=== PATIENT | male | born 1990 | race Caucasian/White ===

== ENCOUNTER 2020-03-17 11:52 | Emergency (ER) | payer BC ==
[~2020-03-17] VITALS: Ht 185.4 cm; Wt 93.1 kg
[2020-03-17] MEDS ORDERED: ONDANSETRON PF 4 MG/2 ML VIAL. IVP ONE (12:15)
[2020-03-17] MEDS ORDERED: IV NORMAL SALINE 1,000ML 1,000 ML IV ONE (12:15)
--- NOTE | 2020-03-17 12:21 | PHYS DOC ---
Past History Past Medical History: No Pertinent History Past Surgical History: No Surgical History Alcohol Use: None General Adult EDM: Chief Complaint: NAUSEA/VOMITING/DIARRHEA HPI: HPI: Patient is a 29 year-old male who presented to ER today for evaluation of generalized weakness, nausea, vomiting, no appetite for over 3 weeks. Patient was laid off for us 4 months, he yet came back to work 4 weeks ago. Patient work as car detail, was working outside 7 hours a day. Patient says thinking back to work patient had no energy, no appetite. Patient denies any abdominal pain, no diarrhea, no cough, no fever. Patient denies any chest pain. Denies any trouble breathing. Patient denies being exposed to anybody who tested positive for COVID-19. Review of Systems: Review of Systems: Constitutional: Denies fever or chills Eyes: Denies change in visual acuity HENT: Denies nasal congestion or sore throat Respiratory: Denies cough or shortness of breath Cardiovascular: Denies chest pain or edema GI: Denies abdominal pain, positive for nausea and vomiting, no diarrhea, no constipation. : Denies dysuria Musculoskeletal: Denies back pain or joint pain Integument: Denies rash Neurologic: Denies headache, focal weakness or sensory changes Endocrine: Denies polyuria or polydipsia Lymphatic: Denies swollen glands Psychiatric: Denies depression or anxiety Heart Score: Risk Factors: Risk Factors: DM, Current or recent (<one month) smoker, HTN, HLP, family history of CAD, obesity. Risk Scores: Score 0 - 3: 2.5% MACE over next 6 weeks - Discharge Home Score 4 - 6: 20.3% MACE over next 6 weeks - Admit for Clinical Observation Score 7 - 10: 72.7% MACE over next 6 weeks - Early Invasive Strategies Current Medications: Current Meds: Current Medications Medications (Trade) Dose Ordered Sig/Marino Start Time Stop Time Status Last Admin Dose Admin Ondansetron HCl (Zofran) 4 mg 1X ONCE 03/17/20 12:15 03/17/20 12:16 DC Sodium Chloride 1,000 ml @ 1,000 mls/hr 1X ONCE 03/17/20 12:15 03/17/20 13:14 Allergies: Allergies: Allergies Coded Allergies Type Severity Reaction Last Updated Verified No Known Drug Allergies 03/17/20 No Physical Exam: PE: Constitutional: Well developed, well nourished, no acute distress, non-toxic appearance. [] HENT: Normocephalic, atraumatic, bilateral external ears normal, oropharynx moist, no oral exudates, nose normal. [] Eyes: PERRLA, EOMI, conjunctiva normal, no discharge. [] Neck: Normal range of motion, no tenderness, supple, no stridor. [] Cardiovascular:Heart rate regular rhythm, no murmur [] Lungs & Thorax: Bilateral breath sounds clear to auscultation [] Abdomen: Bowel sounds normal, soft, no tenderness, no masses, no pulsatile m asses. [] Skin: Warm, dry, no erythema, no rash. [] Back: No tenderness, no CVA tenderness. [] Extremities: No tenderness, no cyanosis, no clubbing, ROM intact, no edema. [] Neurologic: Alert and oriented X 3, normal motor function, normal sensory function, no focal deficits noted. [] Psychologic: Affect normal, judgement normal, mood normal. [] Current Patient Data: Labs: Laboratory Tests Test 03/17/20 12:18 03/17/20 12:23 Urine Opiates Screen Neg Urine Methadone Screen Neg Urine Barbiturates Neg Urine Phencyclidine Screen Neg Urine Amphetamine/Methamphetamine Neg Urine Benzodiazepines Screen Neg Urine Cocaine Screen Neg Urine Cannabinoids Screen Pos Urine Ethyl Alcohol Neg White Blood Count 8.2 x10^3/uL Red Blood Count 4.74 x10^6/uL Hemoglobin 16.5 g/dL Hematocrit 48.2 % Mean Corpuscular Volume 102 fL Mean Corpuscular Hemoglobin 35 pg Mean Corpuscular Hemoglobin Concent 34 g/dL Red Cell Distribution Width 12.9 % Platelet Count 240 x10^3/uL Neutrophils (%) (Auto) 56 % Lymphocytes (%) (Auto) 34 % Monocytes (%) (Auto) 8 % Eosinophils (%) (Auto) 2 % Basophils (%) (Auto) 1 % Neutrophils # (Auto) 4.6 x10^3uL Lymphocytes # (Auto) 2.8 x10^3/uL Monocytes # (Auto) 0.6 x10^3/uL Eosinophils # (Auto) 0.1 x10^3/uL Basophils # (Auto) 0.1 x10^3/uL Sodium Level 140 mmol/L Potassium Level 3.7 mmol/L Chloride Level 104 mmol/L Carbon Dioxide Level 23 mmol/L Anion Gap 13 Blood Urea Nitrogen 10 mg/dL Creatinine 1.1 mg/dL Estimated GFR (Cockcroft-Gault) 79.7 BUN/Creatinine Ratio 9 Glucose Level 99 mg/dL Calcium Level 9.3 mg/dL Magnesium Level 2.0 mg/dL Total Bilirubin 0.3 mg/dL Aspartate Amino Transf (AST/SGOT) 14 U/L Alanine Aminotransferase (ALT/SGPT) 32 U/L Alkaline Phosphatase 78 U/L Creatine Kinase 94 U/L Total Protein 7.6 g/dL Albumin 3.9 g/dL Albumin/Globulin Ratio 1.1 Lipase 62 U/L Current Medications Medications (Trade) Dose Ordered Sig/Marino Route PRN Reason Start Time Stop Time Status Last Admin Dose Admin Ondansetron HCl (Zofran) 4 mg 1X ONCE IVP 03/17/20 12:15 03/17/20 12:16 DC 03/17/20 12:28 Sodium Chloride 1,000 ml @ 1,000 mls/hr 1X ONCE IV 03/17/20 12:15 03/17/20 13:14 03/17/20 12:25 Vital Signs: Vital Signs Date Time Temp Pulse Resp B/P (MAP) Pulse Ox O2 Delivery O2 Flow Rate FiO2 03/17/20 12:00 97.9 86 12 152/97 (115) 96 Room Air EKG: EKG: [] Radiology/Procedures: Radiology/Procedures: [] Course & Med Decision Making: Course & Med Decision Making Pertinent Labs and Imaging studies reviewed. (See chart for details) Patient is a 29-year-old male who presents to ER today for evaluation of nausea vomiting off and on for 3 weeks, lab work did not find any acute problem. Patient will be discharged home with nausea medication as needed. Dragon Disclaimer: Dragon Disclaimer: This electronic medical record was generated, in whole or in part, using a voice recognition dictation system. Departure Departure: Impression: Primary Impression: Nausea & vomiting Disposition: 01 HOME/RESIDENCE PRIOR TO ADM Condition: IMPROVED Referrals: PCP,NO (PCP) please follow up with your doctor as needed Patient Instructions: Nausea and Vomiting Additional Instructions: Thank you for visiting our Emergency Department. We appreciate you trusting us with your care. If any additional problems come up don't hesitate to return to visit us. Please follow up with your primary care provider so they can plan additional care if needed and know about the problem that you had. If symptoms worsen come back to the Emergency Department. Any concerning symptoms that start such as chest pain, shortness of air, weakness or numbness on one side of the body, running high fevers or any other concerning symptoms return to the ER. Scripts Ondansetron Hcl (ZOFRAN) 4 Mg Tablet 1 TAB PO Q6HRS PRN for NAUSEA, #20 TAB Prov: QUIANA AUGUSTIN DO 03/17/20 Justification of Admission: Justification of Admission: Justification of Admission Dx: N/A QUIANA AUGUSTIN DO Mar 17, 2020 12:21
[2020-03-17 12:46] LABS: BASO # 0.1 x10^3/uL (0.0-0.2); BASO % 1 % (0-3); EOS # 0.1 x10^3/uL (0.0-0.7); EOS % 2 % (0-3); HEMATOCRIT 48.2 % (39.0-53.0); HEMOGLOBIN 16.5 g/dL (13.0-17.5); LYMPH # 2.8 x10^3/uL (1.0-4.8); LYMPH % 34 % (24-48); MEAN CORPUSCULAR HEMOGLOBIN 35 pg (25-35); MEAN CORPUSCULAR HGB CONC 34 g/dL (31-37); MEAN CORPUSCULAR VOLUME 102 fL (79-100); MONO # 0.6 x10^3/uL (0.0-1.1); MONO % 8 % (0-9); NEUT # 4.6 x10^3uL (1.8-7.7); NEUT % 56 % (31-73); PLATELET COUNT 240 x10^3/uL (140-400); RED BLOOD COUNT 4.74 x10^6/uL (4.30-5.70); RED CELL DISTRIBUTION WIDTH 12.9 % (11.5-14.5); WHITE BLOOD COUNT 8.2 x10^3/uL (4.0-11.0)
[2020-03-17 12:55] LABS: CALCIUM 9.3 mg/dL (8.5-10.1); CREATININE 1.1 mg/dL (0.7-1.3); GFR 79.7; POTASSIUM 3.7 mmol/L (3.5-5.1)
[2020-03-17 12:57] LABS: BARBITURATES NEG (NEG); BENZODIAZEPINES NEG (NEG); CANNABINOIDS POS (NEG); COCAINE NEG (NEG); METHADONE NEG (NEG); OPIATES NEG (NEG); PHENCYCLIDINE NEG (NEG)
[2020-03-17 13:01] LABS: AMPHETAMINE/METHAMPHETAMINE NEG (NEG)
[2020-03-17 13:01] LABS: ALBUMIN 3.9 g/dL (3.4-5.0); ALBUMIN/GLOBULIN RATIO 1.1 (1.0-1.7); TOTAL BILIRUBIN 0.3 mg/dL (0.2-1.0); TOTAL PROTEIN 7.6 g/dL (6.4-8.2)
[2020-03-17 13:06] VITALS: BP 129/72
[2020-03-17 13:12] LABS: CLARITY,URINE HAZY; COLOR,URINE YELLOW
[2020-03-17] MEDS ORDERED: ONDA4TAB7 PO (13:12)
[2020-03-17 13:13] LABS: BACTERIA,URINE 0 /HPF (0-FEW); BILIRUBIN,URINE NEG (NEG); GLUCOSE,URINE NEG (NEG); NITRITE,URINE NEG (NEG); RBC,URINE OCC /HPF (0-2)
== END 2020-03-17 13:15 | disposition home or self-care (01) ==
LOC: ER 11:52
DX: R11.2 Nausea with vomiting, unspecified (principal); R53.1 Weakness
CPT/HCPCS: 36415; 80053; 80307; 81001; 82550; 83690; 83735; 85025; 96361; 96374; 99283; J2405; J7030

== ENCOUNTER 2020-08-12 14:59 | Emergency (ER) | payer SELFPAY ==
[~2020-08-12] VITALS: Ht 185.4 cm; Wt 94.5 kg
[~2020-08-12 14:59] MED LIST: ONDA4TAB7 PO
[2020-08-12] MEDS ORDERED: FAMOTIDINE 20 MG/2 ML VIAL IVP ONE (15:15)
[2020-08-12] MEDS ORDERED: KETOROLAC 15 MG/ML VIAL. IVP ONE (15:15)
[2020-08-12] MEDS ORDERED: IV NORMAL SALINE 1,000ML 1,000 ML IV ONE (15:15)
[2020-08-12] MEDS ORDERED: ONDANSETRON PF 4 MG/2 ML VIAL. IVP ONE (15:30)
[2020-08-12] MEDS ORDERED: IOHEXOL 350 MG/ML 100 ML VIAL. IV ONE (16:00)
[2020-08-12 16:33] LABS: ALBUMIN 3.4 g/dL (3.4-5.0); ALBUMIN/GLOBULIN RATIO 0.9 (1.0-1.7); BASO % 1 % (0-3); EOS # 0.2 x10^3/uL (0.0-0.7); EOS % 3 % (0-3); HEMATOCRIT 50.3 % (39.0-53.0); HEMOGLOBIN 17.7 g/dL (13.0-17.5); LYMPH # 1.9 x10^3/uL (1.0-4.8); LYMPH % 27 % (24-48); MAGNESIUM 2.1 mg/dL (1.8-2.4); MEAN CORPUSCULAR HEMOGLOBIN 33 pg (25-35); MEAN CORPUSCULAR HGB CONC 35 g/dL (31-37); MEAN CORPUSCULAR VOLUME 94 fL (79-100); MONO # 0.9 x10^3/uL (0.0-1.1); MONO % 12 % (0-9); NEUT # 4.1 x10^3uL (1.8-7.7); NEUT % 58 % (31-73); PLATELET COUNT 185 x10^3/uL (140-400); RED BLOOD COUNT 5.33 x10^6/uL (4.30-5.70); RED CELL DISTRIBUTION WIDTH 13.3 % (11.5-14.5); TOTAL BILIRUBIN 0.2 mg/dL (0.2-1.0); TOTAL PROTEIN 7.4 g/dL (6.4-8.2); WHITE BLOOD COUNT 7.1 x10^3/uL (4.0-11.0)
[2020-08-12 16:47] LABS: CALCIUM 8.7 mg/dL (8.5-10.1); CREATININE 1.2 mg/dL (0.7-1.3); GFR 71.6; POTASSIUM 3.3 mmol/L (3.5-5.1)
[2020-08-12 17:02] LABS: BARBITURATES NEG (NEG); BENZODIAZEPINES NEG (NEG); CANNABINOIDS POS (NEG); COCAINE NEG (NEG); METHADONE NEG (NEG); OPIATES NEG (NEG); PHENCYCLIDINE NEG (NEG)
[2020-08-12 17:11] LABS: BILIRUBIN,URINE SMALL (NEG); CLARITY,URINE CLEAR; COLOR,URINE AMBER; GLUCOSE,URINE NEG (NEG); NITRITE,URINE NEG (NEG); UROBILINOGEN,URINE 0.2 mg/dL (0.2 mg/dL)
[2020-08-12 17:12] LABS: BACTERIA,URINE FEW /HPF (0-FEW); SQUAMOUS EPITHELIAL CELL,UR OCC /LPF; WBC,URINE RARE /HPF (0-4)
[2020-08-12 17:16] LABS: AMPHETAMINE/METHAMPHETAMINE NEG (NEG)
--- NOTE | 2020-08-12 17:38 | RAD ---
CT angiogram of the chest, abdomen and pelvis: Reason for examination: Cough, chest pain and nausea and vomiting. Helical images were obtained through the chest, abdomen and pelvis with intravenous administration of 100 cc Omnipaque 350 using angiographic protocol. 3-D MIPS reconstruction was performed in sagittal and coronal planes. Exposure: One or more of the following individualized dose reduction techniques were utilized for thi s examination: 1. Automated exposure control 2. Adjustment of the mA and/or kV according to patient size 3. Use of iterative reconstruction technique. No abnormality seen at the thyroid gland. The trachea and mainstem bronchi show no intraluminal lesio ns. No focal abnormality seen at the esophagus. The thoracic aorta shows no aneurysmal dilatation or dissection. The heart size is normal with no pericardial effusion. There is no evidence of pulmonary embolus. The lung tabor are clear with no gross infiltrates, nodules or pleural effusions. No acute bony abnormalities are seen in the thorax. No abnormality seen at the liver, spleen or adrenal glands. No abnormality seen at the gallbladder or pancreas. The abdominal aorta and inferior vena cava show no acute abnormalities. The colon shows so me wall thickening in the ascending, transverse and descending colon suggesting colitis. The small in testinal tract also shows some wall thickening proximally in the small intestine which may reflect so me enteritis. No abnormality seen at the stomach or duodenum. No abnormality seen at the appendix. Th e kidneys show no renal masses, renal calculi, hydronephrosis or obstructive uropathy. There does karla ear to be some cortical thinning at the upper and lower poles of the left kidney which may reflect so me parenchymal scarring. No abnormality seen at the bladder, prostate gland or seminal vesicles. No free fluid or free air is seen in the abdomen or pelvis. No acute bony abnormalities are seen in the lumbar spine or pelvis. IMPRESSION: No pulmonary embolus. No infiltrates or pleural effusions. Wall thickening in the ascending, transverse and descending colon suggesting colitis. Wall thickening in the proximal small intestine suggesting enteritis. Cortical thinning at the upper and lower poles of the left kidney which probably reflect parenchymal scarring. Electronically signed by: Jennifer Davis MD (08/12/2020 5:36 PM) DAREK
[2020-08-12 17:49] VITALS: BP 127/65
[2020-08-12] MEDS ORDERED: CIPR500T94 PO (17:55)
[2020-08-12] MEDS ORDERED: METR500T PO (17:55)
[2020-08-12] MEDS ORDERED: HYOS0.1265 SL (17:55)
[2020-08-12] MEDS ORDERED: ONDA4TAB12 PO (17:55)
--- NOTE | 2020-08-12 17:55 | PHYS DOC ---
Past History Past Medical History: GERD Past Surgical History: Other Additional Past Surgical Histo: ESOPHAGUS ULCERS REMOVED Smoking: Cigarettes Alcohol Use: None Drug Use: Marijuana General Adult EDM: Chief Complaint: ABDOMINAL PAIN HPI: HPI: 30-year-old male presents with 3-day history of lower abdominal pain with associated nausea/vomiting/diarrhea and subjective fever/chills. Patient denies known sick contacts. Denies trauma. Reports generalized malaise. Denies known exposure to COVID-19. Denies chest pain, cough, or shortness of air. Review of Systems: Review of Systems: Constitutional: Reports fever and chills and generalized malaise Eyes: Denies redness or eye pain HENT: Denies nasal congestion or sore throat Respiratory: Denies cough or shortness of breath Cardiovascular: Denies chest pain or palpitations GI: Reports abdominal pain, nausea, vomiting, and diarrhea : Denies dysuria or hematuria Musculoskeletal: Denies back pain or joint pain Integument: Denies rash or skin lesions Neurologic: Denies headache, focal weakness or sensory changes Complete systems were reviewed and found to be within normal limits, except as documented in this note. Current Medications: Current Meds: Current Medications Medications (Trade) Dose Ordered Sig/[facility] Start Time Stop Time Status Last Admin Dose Admin Famotidine (Pepcid Vial) 20 mg 1X ONCE 08/12/20 15:15 08/12/20 15:25 DC 08/12/20 15:42 20 MG Iohexol (Omnipaque 350 Mg/ml) 100 ml 1X ONCE 08/12/20 16:00 08/12/20 16:01 DC Ketorolac Tromethamine (Toradol 15mg Vial) 15 mg 1X ONCE 08/12/20 15:15 08/12/20 15:25 DC 08/12/20 15:44 15 MG Ondansetron HCl (Zofran) 4 mg 1X ONCE 08/12/20 15:30 08/12/20 15:31 DC 08/12/20 15:43 4 MG Sodium Chloride 1,000 ml @ 1,000 mls/hr 1X ONCE 08/12/20 15:15 08/12/20 16:14 DC 08/12/20 15:41 1,000 MLS/HR Allergies: Allergies: Allergies Coded Allergies Type Severity Reaction Last Updated Verified No Known Drug Allergies 08/12/20 No Physical Exam: PE: Constitutional: Well developed, well nourished, no acute distress, non-toxic appearance HENT: Normocephalic, atraumatic Eyes: Conjunctiva normal, no discharge Neck: Normal range of motion, no tenderness, supple Lungs & Thorax: No respiratory distress, equal chest rise and fall Abdomen: Soft, diffuse tenderness; no guarding/rebound tenderness/distention Skin: Warm, dry, no erythema, no rash Back: No tenderness, no CVA tenderness Extremities: No tenderness, ROM intact, no edema Neurologic: Alert and oriented X 3, normal motor function, normal sensory function, no focal deficits noted Psychologic: Affect normal, judgment normal Current Patient Data: Labs: Laboratory Tests Test 08/12/20 15:50 08/12/20 16:15 White Blood Count 7.1 x10^3/uL (4.0-11.0) Red Blood Count 5.33 x10^6/uL (4.30-5.70) Hemoglobin 17.7 g/dL (13.0-17.5) H Hematocrit 50.3 % (39.0-53.0) Mean Corpuscular Volume 94 fL (79-100) Mean Corpuscular Hemoglobin 33 pg (25-35) Mean Corpuscular Hemoglobin Concent 35 g/dL (31-37) Red Cell Distribution Width 13.3 % (11.5-14.5) Platelet Count 185 x10^3/uL (140-400) Neutrophils (%) (Auto) 58 % (31-73) Lymphocytes (%) (Auto) 27 % (24-48) Monocytes (%) (Auto) 12 % (0-9) H Eosinophils (%) (Auto) 3 % (0-3) Basophils (%) (Auto) 1 % (0-3) Neutrophils # (Auto) 4.1 x10^3uL (1.8-7.7) Lymphocytes # (Auto) 1.9 x10^3/uL (1.0-4.8) Monocytes # (Auto) 0.9 x10^3/uL (0.0-1.1) Eosinophils # (Auto) 0.2 x10^3/uL (0.0-0.7) Basophils # (Auto) 0.0 x10^3/uL (0.0-0.2) Sodium Level 134 mmol/L (136-145) L Potassium Level 3.3 mmol/L (3.5-5.1) L Chloride Level 99 mmol/L (98-107) Carbon Dioxide Level 25 mmol/L (21-32) Anion Gap 10 (6-14) Blood Urea Nitrogen 14 mg/dL (8-26) Creatinine 1.2 mg/dL (0.7-1.3) Estimated GFR (Cockcroft-Gault) 71.6 BUN/Creatinine Ratio 12 (6-20) Glucose Level 103 mg/dL (70-99) H Lactic Acid Level 1.1 mmol/L (0.4-2.0) Calcium Level 8.7 mg/dL (8.5-10.1) Magnesium Level 2.1 mg/dL (1.8-2.4) Total Bilirubin 0.2 mg/dL (0.2-1.0) Aspartate Amino Transferase (AST) 19 U/L (15-37) Alanine Aminotransferase (ALT) 35 U/L (16-63) Alkaline Phosphatase 96 U/L (46-116) Total Protein 7.4 g/dL (6.4-8.2) Albumin 3.4 g/dL (3.4-5.0) Albumin/Globulin Ratio 0.9 (1.0-1.7) L Lipase 44 U/L (73-393) L Urine Collection Type Unknown Urine Color Maxine Urine Clarity Clear Urine pH 6.0 Urine Specific [place] >=1.030 Urine Protein 100 mg/dl (NEG-TRACE) Urine Glucose (UA) Neg mg/dL (NEG) Urine Ketones (Stick) Neg mg/dL (NEG) Urine Blood Trace (NEG) Urine Nitrite Neg (NEG) Urine Bilirubin Small (NEG) Urine Urobilinogen Dipstick 0.2 mg/dL (0.2 mg/dL) Urine Leukocyte Esterase Neg (NEG) Urine RBC 1-2 /HPF (0-2) Urine WBC Rare /HPF (0-4) Urine Squamous Epithelial Cells Occ /LPF Urine Bacteria Few /HPF (0-FEW) Urine Opiates Screen Neg (NEG) Urine Methadone Screen Neg (NEG) Urine Barbiturates Neg (NEG) Urine Phencyclidine Screen Neg (NEG) Urine Amphetamine/Methamphetamine Neg (NEG) Urine Benzodiazepines Screen Neg (NEG) Urine Cocaine Screen Neg (NEG) Urine Cannabinoids Screen Pos (NEG) Urine Ethyl Alcohol Neg (NEG) Vital Signs: Vital Signs Date Time Temp Pulse Resp B/P (MAP) Pulse Ox O2 Delivery O2 Flow Rate FiO2 08/12/20 15:16 98.2 87 18 138/73 (94) 97 Room Air EKG: EKG: [] Radiology/Procedures: Radiology/Procedures: PROCEDURE: CT ANGIO CHEST W ABD PEL W/ CT angiogram of the chest, abdomen and pelvis: Reason for examination: Cough, chest pain and nausea and vomiting. Helical images were obtained through the chest, abdomen and pelvis with intravenous administration of 100 cc Omnipaque 350 using angiographic protocol. 3-D MIPS reconstruction was performed in sagittal and coronal planes. Exposure: One or more of the following individualized dose reduction techniques were utilized for this examination: 1. Automated exposure control 2. Adjustment of the mA and/or kV according to patient size 3. Use of iterative reconstruction technique. No abnormality seen at the thyroid gland. The trachea and mainstem bronchi show no intraluminal lesions. No focal abnormality seen at the esophagus. The thoracic aorta shows no aneurysmal dilatation or dissection. The heart size is normal with no pericardial effusion. There is no evidence of pulmonary embolus. The lung tabor are clear with no gross infiltrates, nodules or pleural effusions. No acute bony abnormalities are seen in the thorax. No abnormality seen at the liver, spleen or adrenal glands. No abnormality seen at the gallbladder or pancreas. The abdominal aorta and inferior vena cava show no acute abnormalities. The colon shows some wall thickening in the ascending, transverse and descending colon suggesting colitis. The small intestinal tract also shows some wall thickening proximally in the small intestine which may reflect some enteritis. No abnormality seen at the stomach or duodenum. No abnormality seen at the appendix. The kidneys show no renal masses, renal calculi, hydronephrosis or obstructive uropathy. There does appear to be some cortical thinning at the upper and lower poles of the left kidney which may reflect some parenchymal scarring. No abnormality seen at the bladder, prostate gland or seminal vesicles. No free fluid or free air is seen in the abdomen or pelvis. No acute bony abnormalities are seen in the lumbar spine or pelvis. IMPRESSION: No pulmonary embolus. No infiltrates or pleural effusions. Wall thickening in the ascending, transverse and descending colon suggesting colitis. Wall thickening in the proximal small intestine suggesting enteritis. Cortical thinning at the upper and lower poles of the left kidney which probably reflect parenchymal scarring. Electronically signed by: Jennifer Davis MD (08/12/2020 5:36 PM) DAREK Course & Med Decision Making: Course & Med Decision Making Pertinent Labs and Imaging studies reviewed. (See chart for details) Patient presents with lower abdominal pain with associated nausea/vomiting/diarrhea. Patient appears ill. Cannot exclude COVID-19. COVID-[address] Labs obtained and posted to chart. Covid testing pending. CTA chest with CT abdomen/pelvis with IV contrast with signs of enteritis and colitis. Empiric antibiotic provided. Hypokalemia addressed. Patient stable for discharge with outpatient follow-up with PCP. Discussed findings and plan with patient, who acknowledges understanding and agreement. COVID-19 CRITERIA: The patient was evaluated during the global COVID-19 pandemic, and that diagnosis was suspected/considered upon their initial presentation. Their evaluation, treatment and testing was consistent with current guidelines for patients who present with complaints or symptoms that may be related to COVID-19. Dragon Disclaimer: Dragon Disclaimer: This electronic medical record was generated, in whole or in part, using a voice recognition dictation system. Departure Departure: Impression: Primary Impression: Colitis Additional Impressions: Enteritis Suspected 2019 novel coronavirus infection Hypokalemia Disposition: 01 DC HOME SELF CARE/HOMELESS Condition: STABLE Referrals: PCPJUNG (PCP) MAGGI LYNN MD Patient Instructions: Colitis Additional Instructions: You have been tested for or diagnosed with COVID-19. It is an infection caused b y a new type of coronavirus. COVID-19 will cause cold-like or mild flu symptoms in most. It can cause more severe symptoms like problems breathing in some. There is no treatment for COVID-19. The body will clear the infection over time. Self-care will help to ease discomfort. Steps to Take: Self-Care Rest as needed. Healthy habits may help you feel better. Steps include: Choose healthy foods including fruits and vegetables. Drink water throughout the day. Get plenty of sleep each night. If you smoke, try to quit. It may ease breathing. Avoid alcohol. Keep Others Healthy The virus can spread to others. Droplets are released every time you sneeze or cough. The droplets can get into the mouth, nose, or eyes of people near you and lead to infection. To lower the chances of spreading COVID-19 to others: Stay at home until your doctor has said it is safe to leave. If you tested p ositive this will mean staying isolated until both of the following are true: At least 7 days have passed since the start of illness. You are free of fever for at least 72 hours without the use of medicine. During this time: - Avoid public areas, events, or transportation. Do not return to work or school until your doctor has said it is safe to do so. - Call ahead if you need to go to a medical center. Let them know you may have COVID-19. It will help them guide you where to go. They may also ask you to wear a facemask when you come to the office. - If you call for emergency medical services, let them know you may have COVID- 19. While at home: - Try to avoid close contact with others. Stay about 6 feet away. - If possible, spend most of your time in a separate room from others. - Use a face mask if you will be in close contact with others such as sharing a room or vehicle. - Have someone wipe down common surfaces in the home. Use household manager spring every day on areas like doorknobs, counters, or sinks. - Cough or sneeze into a tissue. Throw the tissue away right after use. If a tissue is not available, cough or sneeze into your elbow. - Wash your hands often. Wash them after sneezing or coughing. Use soap and water and wash for at least 20 seconds. Alcohol based hand bus cleaner can be used if soap and water is not available. - Do not prepare food for others. Avoid sharing personal items like forks, spoons, or toothbrushes. - Avoid close contact with pets while you are sick. There is no evidence of the virus passing to pets. This is a safety step until more is known about this virus. Isolation can be frustrating. Social interaction can help. Keep in touch with friends and family through phone and tech options. You can still interact with others in your home, just keep a safe distance of about 6 feet. Follow-up: Your doctors office will check in with you to see if there are any changes in your health. You may be asked to keep track of symptoms to share with them. They will also let you know when you are clear to be in public again. Problems to Look Out For: Contact your doctor if your recovery is not going as you expect. Get emergency care if you have problems such as: - Trouble breathing - Nonstop chest pain or pressure - Changes in awareness, confusion, or problems waking - Lips or face have bluish color - Worsening of symptoms If you think you have an emergency, call for emergency medical services right away. As taken from [facility] [place] Health Scripts Metronidazole (FLAGYL) 500 Mg Tablet 1 TAB PO TID for Colitis for 7 Days, #21 TAB Prov: PAEVL KAY DO 08/12/20 Ciprofloxacin Hcl (CIPRO) 500 Mg Tablet 1 TAB PO BID for Colitis, #14 TAB Prov: PAVEL KAY DO 08/12/20 Hyoscyamine Sulfate (LEVSIN-SL) 0.125 Mg Tab.subl 0.125 MG SL Q4-6HRS PRN for PAIN, #20 TAB Prov: PAVEL KAY DO 08/12/20 Ondansetron (ONDANSETRON ODT) 4 Mg Tab.rapdis 1 TAB PO PRN Q6-8HRS PRN for NAUSEA, #16 TAB Prov: PAVEL KAY DO 08/12/20 COVID-19 Assessment COVID-19 Patient Risks: Age 65 or older: No Sign of co-morbidity: No Exp to person + for COVID: No Exp to PUI: No Travel from affected area: No Lower respiratory symptoms: No Fever: Yes Other: Yes PPE Use: Full PPE with N95 mask or PAPR: Yes PAVEL KAY DO Aug 12, 2020 17:55
[2020-08-12] MEDS ORDERED: POTASSIUM CHLORIDE 20 MEQ TABLET.ER. PO ONE (18:00)
[2020-08-12] MEDS ORDERED: CIPROFLOXACIN HCL 500 MG TABLET PO ONE (18:00)
[2020-08-12] MEDS ORDERED: metroNIDAZOLE 500 MG TABLET PO ONE (18:00)
== END 2020-08-12 18:17 | disposition home or self-care (01) ==
LOC: ER 14:59
DX: K52.9 Noninfective gastroenteritis and colitis, unspecified (principal); E87.6 Hypokalemia; Z20.822 Contact with and (suspected) exposure to COVID-19; K21.9 Gastro-esophageal reflux disease without esophagitis; F17.210 Nicotine dependence, cigarettes, uncomplicated
CPT/HCPCS: 36415; 71275; 74177; 80053; 80307; 81001; 83605; 83690; 83735; 85025; 96361; 96374; 96375; 99285; C9803; J1885; J2405; J3490; J7030; U0003

== ENCOUNTER 2021-03-04 19:37 | Emergency (ER) | payer SELFPAY ==
[~2021-03-04] VITALS: Ht 185.4 cm; Wt 94.2 kg
[~2021-03-04 19:37] MED LIST changes: +CIPR500T94 PO; +HYOS0.1265 SL; +METR500T PO; +ONDA4TAB12 PO
[2021-03-04 19:55] VITALS: BP 128/70
--- NOTE | 2021-03-04 20:09 | PHYS DOC ---
Past History Past Medical History: GERD (CYNDIE OROZCO APRN) Past Surgical History: No Surgical History Additional Past Surgical Histo: ESOPHAGUS ULCERS REMOVED (CYNDIE OROZOC APRN) Smoking: Cigarettes Alcohol Use: None Drug Use: Marijuana (CYNDIE OROZCO APRN) General Adult EDM: Chief Complaint: NAUSEA/VOMITING/DIARRHEA HPI: HPI: Patient is a 30-year-old male who presents to the ER for nausea/vomiting. Patient is Covid positive and was diagnosed 12 days ago. Patient reports that he went back to work today and vomited multiple times and was unable to tolerate fluids. Patient is not actively vomiting in the ER. Patient denies chest pain, shortness of breath, diarrhea, abdominal pain, fevers. (CYNDIE OROZCO APRN) Review of Systems: Review of Systems: 14 body systems of the review of systems have been reviewed. See HPI for pertinent positive and negative responses, otherwise all other systems are negative, nonpertinent or noncontributory (CYNDIE OROZCO APRN) Current Medications: Current Meds: Current Medications Medications (Trade) Dose Ordered Sig/Marino Start Time Stop Time Status Last Admin Dose Admin Ondansetron HCl (Zofran) 4 mg 1X ONCE 03/04/21 20:15 03/04/21 20:16 UNV Sodium Chloride 1,000 ml @ 1,000 mls/hr 1X ONCE 03/04/21 20:15 03/04/21 21:14 UNV (CYNDIE OROZCO APRN) Allergies: Allergies: Allergies Coded Allergies Type Severity Reaction Last Updated Verified No Known Drug Allergies 08/12/20 No (CYNDIE OROZCO APRN) Physical Exam: PE: Constitutional: Well developed, well nourished, no acute distress, non-toxic appearance. [] HENT: Normocephalic, atraumatic, bilateral external ears normal, oropharynx moist, no oral exudates, nose normal. [] Eyes: PERRL, EOMI, conjunctiva normal, no discharge. [] Neck: Normal range of motion, no stridor Cardiovascular:Heart rate slightly tachycardic rhythm, no murmur [] Lungs & Thorax: Bilateral breath sounds clear to auscultation [] Abdomen: Bowel sounds normal, soft, no tenderness, no masses, no pulsatile masses, no active vomiting. [] Skin: Warm, dry, no erythema, no rash. [] Back: Normal range of motion Extremities: No tenderness, no cyanosis, no clubbing, ROM intact, no edema. [] Neurologic: Alert and oriented X 3, normal motor function, normal sensory function, no focal deficits noted. [] Psychologic: Affect normal, judgement normal, mood normal. [] (CYNDIE OROZCO APRN) Current Patient Data: Vital Signs: Vital Signs Date Time Temp Pulse Resp B/P (MAP) Pulse Ox O2 Delivery O2 Flow Rate FiO2 03/04/21 19:55 98.0 101 16 128/70 96 Room Air (CYNDIE OROZCO APRN) EKG: EKG: [] (CYNDIE OROZCO APRN) Radiology/Procedures: Radiology/Procedures: [] (CYNDIE OROZCO APRN) Heart Score: C/O Chest Pain: No Risk Factors: Risk Factors: DM, Current or recent (<one month) smoker, HTN, HLP, family history of CAD, obesity. Risk Scores: Score 0 - 3: 2.5% MACE over next 6 weeks - Discharge Home Score 4 - 6: 20.3% MACE over next 6 weeks - Admit for Clinical Observation Score 7 - 10: 72.7% MACE over next 6 weeks - Early Invasive Strategies (CYNDIE OROZCO APRN) Course & Med Decision Making: Course & Med Decision Making Pertinent Labs and Imaging studies reviewed. (See chart for details) [] Patient is a 30-year-old male with positive patient who is being seen in the ER for nausea and vomiting. Prior to work-up in the ER patient reported that he wanted to leave AGAINST MEDICAL ADVICE. AMA paper signed. Patient acknowledges the risks of leaving AGAINST MEDICAL ADVICE which includes worsening of his condition including . (CYNDIE OROZCO APRN) Dragon Disclaimer: Dragon Disclaimer: This electronic medical record was generated, in whole or in part, using a voice recognition dictation system. (CYNDIE OROZCO APRN) Departure Departure: Impression: Primary Impression: Nausea Disposition: LEFT AGAINST MEDICAL ADVICE Condition: STABLE Referrals: PCP,NO (PCP) Attending Signature Attending Signature I have reviewed the PA/BAKER PIE's note and plan of care. I was available for consultation as needed during the patient's visit in the emergency department. I agree with the clinical impression, plan, and disposition. (PAVEL KAY DO) CYNDIE OROZCO APRN Mar 04, 2021 20:09 PAVEL KAY DO Mar 04, 2021 22:40
[2021-03-04] MEDS ORDERED: IV NORMAL SALINE 1,000ML 1,000 ML IV ONE (20:15)
[2021-03-04] MEDS ORDERED: ONDANSETRON PF 4 MG/2 ML VIAL. IVP ONE (20:15)
== END 2021-03-04 20:27 | disposition left against medical advice (07) ==
LOC: EDBD 19:37 → ER 19:37
DX: R11.2 Nausea with vomiting, unspecified (principal); K21.9 Gastro-esophageal reflux disease without esophagitis; F17.210 Nicotine dependence, cigarettes, uncomplicated
CPT/HCPCS: 99281